=== PATIENT | male | born 1965 | race Caucasian/White ===

== ENCOUNTER 2016-11-21 15:23 | Outpatient (CLI) | payer OTHER | END 2016-11-21 15:24 | disposition home or self-care (01) | DX: M23.221 Derangement of posterior horn of medial meniscus due to old tear or injury, right knee (principal); M23.241 Derangement of anterior horn of lateral meniscus due to old tear or injury, right knee; M23.251 Derangement of posterior horn of lateral meniscus due to old tear or injury, right knee; M23.8X1 Other internal derangements of right knee; M25.461 Effusion, right knee; M65.861 Other synovitis and tenosynovitis, right lower leg ==